=== PATIENT | female | born 1930 | race Caucasian/White ===

== ENCOUNTER 2018-10-31 11:44 | Emergency (ER) | payer OTHER, MEDICAID ==
[~2018-10-31] VITALS: Ht 154.9 cm; Wt 81.6 kg
[2018-10-31 12:09] VITALS: Ht 154.9 cm; Wt 81.6 kg
[2018-10-31 13:03] LABS: BASOPHIL % 0.2 % (0-2)
[2018-10-31 13:10] LABS: CALCIUM 7.9 mg/dL (8.5-10.1); CARBON DIOXIDE 29.1 mmol/L (21-32); CHLORIDE SERUM 99 mmol/L (98-107); CREATININE SERUM 0.7 mg/dL (0.6-1.0); GLUCOSE SERUM 117 mg/dL (74-106); SODIUM SERUM 133 mmol/L (136-145)
[2018-10-31 13:12] LABS: ALKALINE PHOSPHATASE 30 U/L (46-116); ALT/SGPT 5 U/L (14-59); AST/SGOT 15 U/L (15-37); BILIRUBIN TOTAL 0.53 mg/dL (0.20-1.00)
[2018-10-31 13:15] LABS: PLATELET COUNT 415 x10^3mcL (130-400)
[2018-10-31 13:18] LABS: ALBUMIN 2.4 g/dL (3.4-5.0); TOTAL PROTEIN, SERUM 5.4 g/dL (6.4-8.2)
[2018-10-31 23:42] VITALS: BP 139/66
== END 2018-10-31 23:35 | disposition short-term general hospital (02) ==
LOC: ED 11:44
PROVIDERS: Emergency Medicine
DX: L02.811 Cutaneous abscess of head [any part, except face] (principal); B99.8 Other infectious disease
CPT/HCPCS: 83880; J2270; J2543; J3490; Q9967